=== PATIENT | male | born 1965 | race Caucasian/White ===

== ENCOUNTER 2016-09-17 07:57 | Emergency (ER) | payer OTHER ==
--- NOTE | 2016-09-17 08:22 | ERPHSYRPT ---
- History of Present Illness Time Seen by Provider: 09/17/16 08:15 Historian: patient Exam Limitations: no limitations Patient Subjective Stated Complaint: PT REPORTS RIGHT FLANK PAIN RADIATING TO LOW [id number] FEVER-DENIES N/V/D-DENIES DIFFICULTY WITH URINATION OR BOWELS Triage Nursing Assessment: PT PINK WARM ET [id number] NONTENDER TO PALP- BOWEL SOUNDS PRESENT-RESP NONLABORED Physician History: The patient is a 51-year-old male with his complaining of right flank pain that began 3-4 days ago but is worsening today. The pain intensifies then lets up. The pain has started to move from the right flank around to the right lower abdomen. He denies nausea vomiting or diarrhea. He has no trouble urinating. He's had no history of kidney stones. His past medical history is significant for diabetes, GERD, and high cholesterol. His surgical history is significant for pilonidal cyst repair and right thumb surgery. Timing/Duration: day(s) (4) Activities at Onset: none Quality: sharpness Abdominal Pain Onset Location: flank Pain Radiation: RLQ Severity of Pain-Max: severe Severity of Pain-Current: severe Modifying Factors: Improves With: nothing Associated Symptoms: denies symptoms Previous symptoms: no prior history Allergies/Adverse Reactions: No Known Drug Allergies Allergy (Verified 09/17/16 08:04) Home Medications: Fexofenadine/Pseudoephedrine [Janine-D 24 Hour Tablet] 1 each PO DAILY [History] Insulin Lispro [Humalog] 20 unit SQ BID 02/01/13 [History] Metformin HCl 1000 mg [Glucophage 1000 MG] 1,000 mg PO BID 02/01/13 [History] Omeprazole 20 MG [Prilosec 20 mg] 20 mg PO DAILY 02/01/13 [History] Simvastatin 20Mg [Zocor 20Mg] 20 mg PO DAILY 02/01/13 [History] Insulin Glargine,Hum.rec.anlog [Basaglar Kwikpen U-100] 50 unit SQ DAILY [History] Hx Tetanus, Diphtheria Vaccination/Date Given: No Hx Influenza Vaccination/Date Given: No Hx Pneumococcal Vaccination/Date Given: No Immunizations Up to Date: Yes - Review of Systems Constitutional: No Fever, No Chills Eyes: No Symptoms Ears, Nose, & Throat: No Symptoms Respiratory: No Cough, No Dyspnea Cardiac: No Chest Pain, No Edema, No Syncope Abdominal/Gastrointestinal: Abdominal Pain Genitourinary Symptoms: No Dysuria Musculoskeletal: No Back Pain, No Neck Pain Skin: No Rash Neurological: No Dizziness, No Focal Weakness, No Sensory Changes Psychological: No Symptoms Endocrine: No Symptoms Hematologic/Lymphatic: No Symptoms Immunological/Allergic: No Symptoms All Other Systems: Reviewed and Negative - Past Medical History Pertinent Past Medical History: Yes Neurological History: No Pertinent History ENT History: Glaucoma Cardiac History: No Pertinent History Respiratory History: Other Endocrine Medical History: Diabetes Type II Musculoskeletal History: No Pertinent History GI Medical History: No Pertinent History History: No Pertinent History Psycho-Social History: No Pertinent History Male Reproductive Disorders: No Pertinent History Other Medical History: allergies/seansonal - Past Surgical History Past Surgical History: Yes Neuro Surgical History: No Pertinent History Cardiac: No Pertinent History Respiratory: No Pertinent History Gastrointestinal: No Pertinent History Genitourinary: No Pertinent History Musculoskeletal: Orthopedic Surgery Male Surgical History: No Pertinent History Other Surgical History: 1980 right thumb and forearm - Social History Smoking Status: Never smoker Exposure to second hand smoke: No Drug Use: none Patient Lives Alone: No - Nursing Vital Signs Nursing Vital Signs: Initial Vital Signs Temperature 97.8 F Temperature Source Oral Pulse Rate 89 Respiratory Rate 16 Blood Pressure [] 135/68 Pain Intensity 4 - Physical Exam General Appearance: moderate distress Eye Exam: PERRL/EOMI, eyes nml inspection Ears, Nose, Throat Exam: normal ENT inspection, pharynx normal, moist mucous membranes Neck Exam: normal inspection, non-tender, supple, full range of motion Respiratory Exam: normal breath sounds, lungs clear, No respiratory distress Cardiovascular Exam: regular rate/rhythm, normal heart sounds Gastrointestinal/Abdomen Exam: tenderness (RLQ and right flank) Rectal Exam: not done Back Exam: CVA tenderness (right) Extremity Exam: normal inspection, normal range of motion, pelvis stable Neurologic Exam: alert, oriented x 3, cooperative, normal mood/affect, nml cerebellar function, sensation nml, No motor deficits Skin Exam: normal color, warm, dry SpO2 Interpretation: normal SpO2: 98 Oxygen Delivery: Room Air - CT Exams Abdomen/Pelvis CT Interpretation: Negative, Tele-radiologist Report, Normal Appendix, Other ( Neg renal stone or evidence of obstructive uropathy. normal appendix. neg abd/ pelvis per Dr Lopez.) - Radiology Ultrasound Exam Gallbladder Ultrasound: tele radiology report ([facility] tech states there is sludge in GB, no wall thickening.) Ordered Tests: Active Orders 24 hr Category Date Time Status IV Insertion STAT Care 09/17/16 08:26 Active ABDOMEN AND PELVIS W/0 CONTRAS [CT] Stat Exams 09/17/16 08:27 Completed GALLBLADDER [US] Stat Exams 09/17/16 10:45 Ordered CBC W DIFF Stat Lab 09/17/16 08:37 Completed CMP Stat Lab 09/17/16 08:37 Completed LIPASE Stat Lab 09/17/16 08:37 Completed TROPONIN Stat Lab 09/17/16 10:19 Completed UA W/RFX UR CULTURE Stat Lab 09/17/16 09:48 Completed Medication Summary Discontinued Medications Generic Name Dose Route Start Last Admin Trade Name Freq PRN Reason Stop Dose Admin Hydromorphone HCl 1 mg 09/17/16 08:26 09/17/16 08:48 Hydromorphone 1 Mg/Ml Ampule IV 09/17/16 08:27 1 mg STAT ONE Administration Hydromorphone HCl Confirm 09/17/16 08:38 Hydromorphone 1 Mg/Ml Ampule Administered 09/17/16 08:39 Dose 1 mg .ROUTE .STK-MED ONE Sodium Chloride 1,000 mls @ 999 mls/hr 09/17/16 08:26 09/17/16 08:46 Sodium Chloride 0.9% 1000 Ml IV 09/17/16 09:26 999 mls/hr .Q1H1M STA Administration Sodium Chloride Confirm 09/17/16 08:38 Sodium Chloride 0.9% 1000 Ml Administered 09/17/16 08:39 Dose 1,000 mls @ ud .ROUTE .STK-MED ONE Ketorolac Tromethamine 30 mg 09/17/16 08:26 09/17/16 08:46 Toradol 30 Mg Injection IV 09/17/16 08:27 30 mg STAT ONE Administration Ketorolac Tromethamine Confirm 09/17/16 08:38 Toradol 30 Mg Injection Administered 09/17/16 08:39 Dose 30 mg .ROUTE .STK-MED ONE Promethazine HCl 25 mg 09/17/16 08:26 09/17/16 08:47 Phenergan 25 Mg Inj IV 09/17/16 08:27 25 mg STAT ONE Administration Promethazine HCl Confirm 09/17/16 08:38 Phenergan 25 Mg Inj Administered 09/17/16 08:39 Dose 25 mg .ROUTE .STK-MED ONE Tamsulosin HCl 0.4 mg 09/17/16 08:29 09/17/16 08:48 Flomax 0.4 Mg PO 09/17/16 08:30 0.4 mg DAILY STA Administration Tamsulosin HCl Confirm 09/17/16 08:38 Flomax 0.4 Mg Administered 09/17/16 08:39 Dose 0.4 mg .ROUTE .STK-MED ONE Lab/Rad Data: Laboratory Result Diagrams 09/17/16 08:37 09/17/16 08:37 Laboratory Results 09/17/16 09/17/16 09/17/16 Range/Units 10:19 09:48 08:37 WBC (4.0-10.5) K/mm3 RBC (4.1-5.6) M/mm3 Hgb (12.5-18.0) gm/dl Hct (42-50) % MCV (78-100) fl MCH (26-32) pg MCHC (32-36) g/dl RDW (11.5-14.0) % Plt Count (150-450) K/mm3 MPV (6-9.5) fl Gran % (36.0-66.0) % Lymphocytes % (24.0-44.0) % Monocytes % (0.0-12.0) % Eosinophils % (0.00-5.0) % Basophils % (0.0-0.4) % Basophils # (0-0.4) Sodium 141 (136-145) mEq/L Potassium 3.8 (3.5-5.1) mEq/L Chloride 105 (98-107) mEq/L Carbon Dioxide 26.5 (21-32) mEq/L Anion Gap 13.5 (5-15) MEQ/L BUN 15 (9-20) mg/dL Creatinine 1.02 (0.55-1.30) mg/dl Estimated GFR > 60 ML/MIN Glucose 133 H (70-110) MG/DL Calcium 9.6 (8.5-10.1) mg/dL Total Bilirubin 0.50 (0.2-1.0) mg/dL AST 20 (15-37) U/L ALT 24 (12-78) U/L Alkaline Phosphatase 38 L (46-116) U/L Troponin I < 0.017 (0.000-0.056) ng/ml Serum Total Protein 6.9 (6.4-8.2) gm/dL Albumin 3.7 (3.4-5.0) g/dL Lipase 250 (73-393) U/L Ur Collection Type VOID Urine Color YELLOW (YELLOW) Urine Appearance CLEAR (CLEAR) Urine pH 5.5 (5-6) Ur Specific [place] 1.015 (1.005-1.025) Urine Protein NEGATIVE (Negative) Urine Glucose (UA) >=1000 (NEGATIVE) mg/dL Urine Ketones NEGATIVE (NEGATIVE) Urine Nitrite NEGATIVE (NEGATIVE) Urine Bilirubin NEGATIVE (NEGATIVE) Urine Urobilinogen 0.2 (0-1) mg/dL Urine WBC (Auto) NEGATIVE (NEGATIVE) Urine RBC (Auto) NEGATIVE (0-5) Bird/ul Specimen Received 09/17/16 0945 09/17/16 Range/Units 08:37 WBC 11.0 H (4.0-10.5) K/mm3 RBC 5.19 (4.1-5.6) M/mm3 Hgb 15.4 (12.5-18.0) gm/dl Hct 43.8 (42-50) % MCV 84.4 (78-100) fl MCH 29.7 (26-32) pg MCHC 35.2 (32-36) g/dl RDW 13.6 (11.5-14.0) % Plt Count 261 (150-450) K/mm3 MPV 8.5 (6-9.5) fl Gran % 63.6 (36.0-66.0) % Lymphocytes % 22.3 L (24.0-44.0) % Monocytes % 7.6 (0.0-12.0) % Eosinophils % 5.6 H (0.00-5.0) % Basophils % 0.9 (0.0-0.4) % Basophils # 0.10 (0-0.4) Sodium (136-145) mEq/L Potassium (3.5-5.1) mEq/L Chloride (98-107) mEq/L Carbon Dioxide (21-32) mEq/L Anion Gap (5-15) MEQ/L BUN (9-20) mg/dL Creatinine (0.55-1.30) mg/dl Estimated GFR ML/MIN Glucose (70-110) MG/DL Calcium (8.5-10.1) mg/dL Total Bilirubin (0.2-1.0) mg/dL AST (15-37) U/L ALT (12-78) U/L Alkaline Phosphatase (46-116) U/L Troponin I (0.000-0.056) ng/ml Serum Total Protein (6.4-8.2) gm/dL Albumin (3.4-5.0) g/dL Lipase (73-393) U/L Ur Collection Type Urine Color (YELLOW) Urine Appearance (CLEAR) Urine pH (5-6) Ur Specific [place] (1.005-1.025) Urine Protein (Negative) Urine Glucose (UA) (NEGATIVE) mg/dL Urine Ketones (NEGATIVE) Urine Nitrite (NEGATIVE) Urine Bilirubin (NEGATIVE) Urine Urobilinogen (0-1) mg/dL Urine WBC (Auto) (NEGATIVE) Urine RBC (Auto) (0-5) Bird/ul Specimen Received - Progress Progress: improved Progress Note: 09/17/16 13:59 After 1 L normal saline, Toradol 30 mg, Dilaudid 1 mg, and Phenergan 25 mg IV, the patient is feeling better. He still has mild p in his right flank region. I discussed all of the imaging studies and laboratory studies with him and his family. I discussed that he should follow-up with Dr. Araujo tomorrow for possible further evaluation. Counseled pt/family regarding: lab results, diagnosis, need for follow-up, rad results - Departure Time of Disposition: 14:01 Departure Disposition: Home Clinical Impression: Abdominal pain Condition: Stable Critical Care Time: No Additional Instructions: You have abdominal pain of unspecified origin. Your white count was marginally elevated but the rest of your laboratory results were normal. The CT scan of her abdomen and pelvis showed a normal appendix. The ultrasound of your gallbladder showed sludge in the gallbladder but no stone. You were given normal saline, Phenergan 25 mg, Toradol 30 mg, and Dilaudid 1 mg by IV in the ER. He were also given Flomax 0.4 mg by mouth. Take Flexeril 5 mg every 8 hours as needed. Stay well hydrated. Follow-up tomorrow with Dr. Araujo. Prescriptions: Cyclobenzaprine HCl [Flexeril] 5 mg PO Q8H PRN PRN #10 tablet PRN Reason: Pain
[2016-09-17] MEDS ORDERED: TORAdol 30 mg Injection IV ONE (08:26)
[2016-09-17] MEDS ORDERED: Phenergan 25 MG INJ IV ONE (08:26)
[2016-09-17] MEDS ORDERED: Sodium Chloride 0.9% 1000 ML 1,000 ML IV STA (08:26)
[2016-09-17] MEDS ORDERED: Hydromorphone 1 mg/ml Ampule IV ONE (08:26)
[2016-09-17] MEDS ORDERED: Flomax 0.4 MG PO STA (08:29)
[2016-09-17] MEDS ORDERED: Phenergan 25 MG INJ ONE (08:38)
[2016-09-17] MEDS ORDERED: Flomax 0.4 MG ONE (08:38)
[2016-09-17] MEDS ORDERED: Hydromorphone 1 mg/ml Ampule ONE (08:38)
[2016-09-17] MEDS ORDERED: Sodium Chloride 0.9% 1000 ML 1,000 ML ONE (08:38)
[2016-09-17] MEDS ORDERED: TORAdol 30 mg Injection ONE (08:38)
[2016-09-17 08:42] LABS: BASOPHIL % 0.9 % (0.0-0.4); Eosinophil % 5.6 % (0.00-5.0); Granulocytes % 63.6 % (36.0-66.0); Lymphocytes % 22.3 % (24.0-44.0); Mean Cell Volume 84.4 fl (78-100); Mean Corpuscular Hemoglobin 29.7 pg (26-32); Mean Platelet Volume 8.5 fl (6-9.5); Monocytes % 7.6 % (0.0-12.0); Platelet Count 261 K/mm3 (150-450); Red Blood Count 5.19 M/mm3 (4.1-5.6); Red Cell Distribution Width 13.6 % (11.5-14.0)
[2016-09-17 09:02] LABS: ALBUMIN 3.7 g/dL (3.4-5.0); ALKALINE PHOSPHATASE 38 U/L (46-116); ANION GAP 13.5 MEQ/L (5-15); BLOOD UREA NITROGEN 15 mg/dL (9-20); CHLORIDE 105 mEq/L (98-107); Carbon Dioxide 26.5 mEq/L (21-32); Glucose 133 MG/DL (70-110); LIPASE 250 U/L (73-393); Potassium 3.8 mEq/L (3.5-5.1); SGOT/AST 20 U/L (15-37); SGPT/ALT 24 U/L (12-78); SODIUM 141 mEq/L (136-145); Total Protein 6.9 gm/dL (6.4-8.2)
[2016-09-17 09:58] LABS: ADD URINE CULTURE? NO (NO); COMPLETE URINE MICROSCOPIC? NO; Collection Type VOID; Ph 5.5 (5-6)
--- NOTE | 2016-09-17 10:29 | XRAY ---
Indication: Right flank pain. Multiple contiguous axial images obtained through the abdomen and pelvis without contrast as ordered. Comparison: None Lung bases essentially clear. Heart is not enlarged. No renal calculus or evidence for obstructive uropathy in either system. Noncontrasted stomach and bowel loops appear nonobstructed. There is mild scattered colonic fecal debris throughout. Normal appendix. No free fluid/air. Tiny 2 mm calcification near the gallbladder hepatic interface. Remaining liver, gallbladder, pancreas, spleen, adrenal glands, kidneys, ureters, bladder, and aorta appear unremarkable for noncontrast exam. Osseous structures intact with mild degenerative changes throughout the spine greatest at the lumbosacral junction. Impression: 1. Negative for renal calculus or evidence for obstructive uropathy. 2. Incidental 2 mm calcification near the gallbladder hepatic interface. Gallbladder sonogram may yield further information if clinically warranted. 3. Mild fecal stasis without obstruction. CTDI 23.69
[2016-09-17 13:59] VITALS: BP 124/66; PULSE 86; O2SAT 98
--- NOTE | 2016-09-17 17:11 | XRAY ---
Indication: Right upper quadrant pain. Two-dimensional right upper quadrant abdominal sonogram performed. Comparison: None S[employer]itor [employer] notes difficult exam due to patient body habitus. Pancreas not well visualized. Gallbladder normally distended with small amount of intraluminal sludge. No gallstones, wall thickening, or pericholecystic fluid. Common bile duct 3.8 mm. Tiny 3 mm calcification near the gallbladder liver interface felt to be hepatic in origin and probably calcified granuloma. Remaining visualized portions of the liver homogeneous. No ascites. Right kidney measures 11.6 cm in length and sonographically unremarkable. Impression: 1. Limited exam due to body habitus. Pancreas not visualized. 2. Tiny gallbladder sludge. Negative for gallstones or acute cholecystitis. 3. Tiny hepatic calcified granuloma. Comment: Preliminary report was given.
== END 2016-09-17 14:18 | disposition home or self-care (01) ==
LOC: ED 07:57
DX: R10.9 Unspecified abdominal pain (principal); E11.9 Type 2 diabetes mellitus without complications; Z79.84 Long term (current) use of oral hypoglycemic drugs; Z79.899 Other long term (current) drug therapy
CPT/HCPCS: 36000; 36415; 74176; 76705; 80053; 81002; 83690; 84484; 85025; 96360; 96374; 96375; 99284; J1170; J1885; J2550; A9270-GY

== ENCOUNTER 2019-10-12 05:58 | Day surgery (SDC) | payer OTHER ==
[2019-10-12 07:05] VITALS: O2SAT 100
[2019-10-12] MEDS ORDERED: Lactated Ringers 1,000 ML IV SCH (07:30)
[2019-10-12] MEDS ORDERED: DIPRIVAN 200 MG/20 ML IV ONE ×2 (07:53→08:24)
[2019-10-12] MEDS ORDERED: Ketamine HCl 50 MG/ML ONE (07:53)
[2019-10-12] MEDS ORDERED: Xylocaine-Mpf 2% 5 Ml Vial ONE (07:53)
[2019-10-12 09:24] LABS: Absolute Neutrophil Ct (ANC) 4.48 (1.4-6.9); BASOPHIL % 0.8 % (0.0-0.4); Basophil (Absolute #) 0.06 (0-0.4); Eosinophil % 3.5 % (0.00-5.0); Eosinophil (Absolute #) 0.27 (0-0.5); Hematocrit 30.3 % (42-50); Hemoglobin 8.6 gm/dl (12.5-18.0); Lymphocyte (Absolute #) 2.25 (1.0-4.6); Lymphocytes % 29.2 % (24.0-44.0); Mean Cell Volume 68.6 fl (78-100); Mean Corpuscular Hemoglobin 19.5 pg (26-32); Mean Corpuscular Hgb Concent. 28.4 g/dl (32-36); Mean Platelet Volume 8.3 fl (7.5-11.0); Monocyte (Absolute #) 0.65 (0.0-1.3); Monocytes % 8.4 % (0.0-12.0); Neutrophil % 58.1 % (36.0-66.0); Platelet Count 307 K/mm3 (150-450); Red Blood Count 4.42 M/mm3 (4.1-5.6); White Blood Count 7.7 K/mm3 (4.0-10.5)
[2019-10-12 09:37] LABS: ALBUMIN 3.9 g/dL (3.5-5.0); ALKALINE PHOSPHATASE 49 U/L (38-126); ANION GAP 12.4 MEQ/L (5-15); BLOOD UREA NITROGEN 16 mg/dL (9-20); CHLORIDE 107 mmol/L (98-107); Calcium 9.1 mg/dL (8.4-10.2); Carbon Dioxide 25 mmol/L (22-30); Glucose 132 mg/dL (74-106); Potassium 4.7 mmol/L (3.5-5.1); SGOT/AST 27 U/L (17-59); SGPT/ALT 17 U/L (0-50); SODIUM 139 mmol/L (137-145); Total Protein 7.1 g/dL (6.3-8.2)
[2019-10-12 10:21] LABS: Slide Review 1 YES
[2019-10-12 10:36] VITALS: BP 155/81; PULSE 87
--- NOTE | 2019-10-12 12:58 | OP ---
SURGERY DATE/TIME: 10/12/2019 0757 PREOPERATIVE DIAGNOSES: 1) Abdominal pain. 2) Rectal bleeding. POSTOPERATIVE DIAGNOSES: 1) Normal upper endoscopy. 2) Large sessile versus pedunculated polyp. A second even larger polyp nearly completely occluding the sigmoid colon and an apple core lesion in the rectosigmoid area approximately 10 cm depth insertion. PROCEDURES: 1) EGD. 2) Colonoscopy with cold forceps biopsy. SURGEON: Dr. Araujo. ANESTHESIA: MAC. Medications given by anesthesia department. HISTORY: The patient is a 54 year old white male patient presenting now for endoscopic evaluation due to abdominal pain and rectal bleeding intermittently. It is noted the patient also takes blood thinners for atrial fibrillation. The patient was felt the need to have endoscopic evaluation and was appraised of the risks of the procedure including the risk of perforation, phlebitis, untoward reaction to medication, increase in risk of bleeding since he took his Lovenox right up to the time of examination and missed lesions. The patient verbalized his understanding and desired to have the procedure performed. DESCRIPTION OF PROCEDURE: The patient was given the medications by the anesthesia department. He had continuous pulse oximetry, ECG monitoring, intermittent blood pressure monitoring and tidal CO2 monitoring during the examination. He was placed in the left lateral decubitus position. A bite block was placed. The flexible Olympus gastroscope was used to intubate the oropharynx. A view of the larynx was obtained and was normal. The scope was easily introduced in the esophagus which appeared to be normal throughout its length. The stomach was entered where gastric roberson was suctioned dry and re-insufflated. The gastric rugal folds distended nicely with insufflation of air. The scope was passed along the greater curvature almost to the antrum. The pylorus encountered and intubated. Duodenum was found to be normal. The scope then withdrawn towards the stomach. A retroflex view was obtained of the lesser curvature, fundus and cardia regions of the stomach and these appeared to be essentially normal. The scope was removed from the patient. Next, a digital rectal examination was performed and revealed normal anal sphincter tone and no masses and normal prostate. The flexible Olympus pediatric colonoscope was used to intubate the rectum. Almost immediately upon entry at approximately 10 cm depth insertion was noted an apple core-type lesion. We were able to pass the scope beyond this however. The scope was passed through the sigmoid colon where a large what appeared to be sessile polyp nearly occluding the lumen was also noted in this area. We were also able to get past this. As we progressed through the colon, the transverse colon was noted also large polyp in this area which also appeared to be fairly thick based. We were able to then proceed to the cecum which appeared to be essentially normal. The right side of the colon from the mid-transverse colon appeared to be normal over, however the large polyps were noted in the left side of the colon. Upon withdrawal of the scope biopsies were obtained in the lesion of the rectosigmoid area which appeared to be very firm and friable and very concerning for adenocarcinoma. The scope is then removed from the patient who tolerated the procedure well and was sent back to OP recovery in good condition. The prep was noted to be fair with fair amounts of liquid stool precluding evaluation of small polyps that might have been missed in the colon otherwise.
== END 2019-10-12 10:10 | disposition home or self-care (01) ==
LOC: SDC 05:58
PROVIDERS: ATTEND Family Medicine
DX: K63.5 Polyp of colon (principal); D37.4 Neoplasm of uncertain behavior of colon; K62.5 Hemorrhage of anus and rectum; E11.9 Type 2 diabetes mellitus without complications; Z79.899 Other long term (current) drug therapy
CPT/HCPCS: 36415; 80053; 82378; 82962; 85025; J2704

== ENCOUNTER 2019-11-02 04:47 | Day surgery (SDC) | payer OTHER ==
[2019-11-02] MEDS ORDERED: DIPRIVAN 200 MG/20 ML IV ONE ×2 (06:20→07:16)
[2019-11-02] MEDS ORDERED: Ketamine HCl 50 MG/ML ONE (06:21)
[2019-11-02] MEDS ORDERED: Lactated Ringers 1,000 ML IV SCH (06:30)
--- NOTE | 2019-11-02 08:03 | HP ---
DATE OF SURGERY: 11/02/2019 HISTORY OF PRESENT ILLNESS: The patient is a 54 year old with strong family history of colon cancer. He has uncle, mother and grandmother who had colon cancer according to the patient. He was noted to have two large polyps. He was noted to have some eccentric area in his colon on recent endoscopy by Dr. Araujo. He is in need of follow up colonoscopy to aaliyah the lesions as well as rebiopsy original biopsy. I am not sure if ej carcinoma but quite suspicious lesion. PAST MEDICAL HISTORY: Diabetes, hypertension, atrial fibrillation. PAST SURGICAL HISTORY: Broken right thumb and cyst on his back in the past. He had a colonoscopy in the past. MEDICATIONS: Glucosamine, insulin pump, metoprolol, Multaq, nitroglycerin, Ajnine, NovoLog, omeprazole, Tums, Pepto-Bismol, Eliquis, ezetimibe, enoxaparin, Farxiga, ferrous sulfate, colesevelam. ALLERGIES: NKDA. FAMILY HISTORY: Colon cancer. SOCIAL HISTORY: No smoking or alcohol abuse. REVIEW OF SYSTEMS: Fourteen systems reviewed. He is a little bit overweight. No chest pain or palpitations. He did have eccentric noncalcified colonic masses. No gross liver metastasis. Otherwise he had history of hypertension and diabetes. PHYSICAL EXAMINATION: GENERAL: No acute distress. HEENT: Sclerae nonicteric. NECK: No JVD. CHEST: Equal excursion, nonlabored breathing. CVS: Regular rate and rhythm. ABDOMEN: Soft. He is a little overweight. No peritoneal signs. EXTREMITIES: No significant edema. NEURO: Alert, oriented, moving extremities symmetrically. No gross motor deficits noted. RECTAL: Deferred timed to endoscopy exam. IMPRESSION: A 54 year old with high grade dysplassia been biopsied by Dr. Araujo. From operative note description sounds this is currently in the rectal area. The patient needs follow up endoscopy for additional tissue sampling as well as looking at locations of the lesions. If he indeed has suspicion of carcinoma then might benefit from chemo regimen therapy prior to considering resection. Additionally, he would benefit from having testing done with very, very strong family history given the multiple masses in his colon. He understands general risk of bleeding or infection, risk of bowel injury or perforation, risk of missed or nondiagnosis, risk of bowel injury or perforation possibly requiring open procedure, risk of anesthesia or bowel prep but not limited to. He understands and agrees to the planned procedure, will do some testing. If he truly had Hunts syndrome may need to consider total or subtotal colectomy. Otherwise will proceed with outpatient colonoscopy with tattooing of location and additional biopsy.
[2019-11-02 09:04] VITALS: O2SAT 99
[2019-11-02 09:08] VITALS: BP 163/94; PULSE 68
--- NOTE | 2019-11-02 09:18 | OP ---
SURGERY DATE/TIME: 11/02/2019 0653 PREOPERATIVE DIAGNOSIS: Multiple colon masses, need for tattooing of location prior to considering surgical versus neoadjuvant treatment first. POSTOPERATIVE DIAGNOSES: Multiple colon masses, multiple colon polyps. PROCEDURES: 1) Colonoscopy to cecum. 2) Hot biopsy removal of small ascending colon polyp across from the ileocecal valve. 3) Ink spot tattooing distal edge of transverse colon polypoid mass marked with ink spot tattooing submucosal area. 4) Hot snare polypectomy of descending colon polyp. 5) Multiple cold biopsies of ulcerated hard rectal mass seen to be around 7 cm in prominent anal verge area the lower third of the rectum with ink spot tattooing of the distal edge of this rectal mass. SURGEON: Dr. Brandon Preston. ANESTHESIA: MAC. ESTIMATED BLOOD LOSS: Minimal. INDICATIONS: As noted above. Risks and benefits explained in detail but not limited to and consent obtained. DESCRIPTION OF PROCEDURE AND FINDINGS: The patient is taken to the operating room. MAC anesthesia introduced. After official time out and no disagreement with planned procedure, digital rectal exam failed to feel distal edge of this rectal mass with the tip of the finger and some small internal hemorrhoids. Video colonoscope inserted. This was an ulcerated almost apple core-type lesion that was very hard and ulcerated and definitely looked like carcinoma. Multiple cold biopsies were taken as the original biopsy pathology reported only high grade dysplasia. It is felt this definitely was a cancer and needed better tissue diagnosis to allow for what was highly recommended neoadjuvant treatment. Otherwise multiple cold biopsies were taken. The scope was passed through this area up through it. There was noted a smaller, flat probably 6 or 7 mm elongated, flatter polyp in the sigmoid colon. There was a larger mass probably about 1.5 to 2.5 cm polypoid mass at the proximal sigmoid colon. The scope passed back through here. In the mid transverse colon another large polypoid mass approaching about a couple centimeters or more. This is the mid transverse colon and polypoid mass could easily be seen on the CT scan. The distal edges were marked with ink spot tattooing 1 cc in a couple different locations. The scope was passed onto the cecum confirmed by palpation and visualization of valve and appendiceal orifice area. There was a small polyp across the valve area this was removed with hot biopsy forceps. Otherwise the scope was then carefully withdrawn over the next 16 minutes. Again the distal edge of the transverse colon polypoid mass was then marked with ink spot tattooing 1 cc in a couple of different locations. The scope was carefully pulled back in the descending colon. A 4 mm polyp removed with hot snare polypectomy with brief bursts of cautery. Good hemostasis noted. Otherwise the scope then pulled back to what seemed to be about 35 to 40 cm in the more proximal sigmoid colon where this other large polypoid mass. It was felt there was no benefit to biopsy this as the distal one appeared to be carcinoma. In between this more proximal sigmoid-rectal mass was another area 6 to 7 mm elongated polyp. It was felt there was no benefit to biopsy this as this is in between two areas that need to come out surgically eventually. The scope pulled back. Again, multiple cold biopsies are taken of this hard, firm, ulcerated circumferential mass in the lower third of the rectum. Good hemostasis noted. Ink spot tattooing 1 cc in two or three different locations. The distal edge of this was used to aaliyah the location with ink spot tattoo. The scope is withdrawn. The patient tolerated the procedure well. Findings discussed and pictures shown to the family member out in the waiting area. I feel he definitely needs some consideration of neoadjuvant chemo/radiation while awaiting his genetic tests to see if he has Mcdowell syndrome or other genetic predisposition that might require more extensive resection.
== END 2019-11-02 08:57 | disposition home or self-care (01) ==
LOC: SDC 04:47
PROVIDERS: ATTEND Surgery
DX: C20 Malignant neoplasm of rectum (principal); D12.4 Benign neoplasm of descending colon; K64.8 Other hemorrhoids; Z80.0 Family history of malignant neoplasm of digestive organs; Z86.010 Personal history of colon polyps; E11.9 Type 2 diabetes mellitus without complications; I10 Essential (primary) hypertension; I48.91 Unspecified atrial fibrillation; Z79.01 Long term (current) use of anticoagulants; Z79.899 Other long term (current) drug therapy
CPT/HCPCS: 82962; 88305; J2704

== ENCOUNTER 2019-11-09 09:48 | Day surgery (SDC) | payer OTHER ==
--- NOTE | 2019-11-06 11:46 | HP ---
DATE OF SURGERY: 11/09/2019 HISTORY OF PRESENT ILLNESS: The patient is a 54 year old patient of Dr. George with multiple colon masses. On original colonoscopy it had shown some high grade dysplasia. He underwent a repeat colonoscopy with tattooing of location of these areas while awaiting for genetic testing to see Dr. Melchor. He underwent follow up biopsy and colonoscopy this was felt to be a rectal cancer. Biopsy returned back invasive moderately differentiated adenocarcinoma. He also had polyp taken off in the ascending colon and another polyp removed in the descending colon. He had a couple other large polypoid masses in the mid transverse colon as well as more proximal sigmoid colon that will need to be treated at the time of surgery. He will see Dr. Melchor and Dr. Norton as it was felt he would benefit from consideration of chemo and radiation therapy while awaiting return of his genetic testing to see if given his multiple masses, to see if he genetic defect that might require more aggressive therapy at the time of surgery. At this time he is in need of Port-A-Cath placement for setting up IV treatments. PAST MEDICAL HISTORY: Atrial fibrillation, hypertension, diabetes, obesity. PAST SURGICAL HISTORY: Broken thumb. Cyst on his back. Colonoscopy in the past. MEDICATIONS: Janine, colesevelam, Eliquis, enoxaparin, ezetimibe, Farxiga, ferrous sulfate, Glucosamine, insulin pump, Lisinopril, Metoprolol, Multaq, nitroglycerin, NovoLog, omeprazole, Yumiko's, Unisom sleep. ALLERGIES: NKDA. FAMILY HISTORY: Very strong for colon cancer. His grandmother had ten siblings who had colon cancer and an aunt and uncle. SOCIAL HISTORY: No smoking or alcohol abuse. REVIEW OF SYSTEMS: Fourteen systems reviewed. Negative or noncontributory as above and per preadmission questionnaire. LAB DATA AND TESTS: CT scan did not show any obvious liver lesions other than calcified granuloma. His CEA is elevated 6.8. Hemoglobin 8.6 initially. PHYSICAL EXAMINATION: GENERAL: No acute distress. HEENT: Sclerae nonicteric. NECK: No JVD. CHEST: Equal excursion, nonlabored breathing. CVS: Regular rate and rhythm. ABDOMEN: Soft. No peritoneal signs. EXTREMITIES: No significant edema. NEURO: Alert, oriented, moving extremities symmetrically. No gross motor deficits noted. IMPRESSION: Rectal cancer. He needs port for neoadjuvant treatment. Rectal cancer, other large polypoid lesions that will need eventually surgical treatment. He is in need of chemo and radiation first and later setting up for resection. In the meantime given his strong family history has genetic testing pending at this time to determine if he needs a more aggressive resection versus total colectomy or other more aggressive procedure, resection of the areas in question. He understands and agrees to the planned procedure. He is in need of Port-A-Cath placement at this time. Risk and benefits explained in detail but not limited to bleeding or infection, risk of thrombosis, pneumothorax, risk of arterial injury, risk of Port-A-Cath fracture or failure, remote risk of major venous tear, risk of mortality, risk of cardiopulmonary event, general risk of anesthesia, deep venous thrombosis, pulmonary embolism, pneumonia but not limited to, aches and pains. He agreed to the planned procedure, will proceed with Port-A-Cath placement as an outpatient.
[~2019-11-09 09:48] MED LIST: XYLOCAINE 1% HCL 20 ML MDV ONE
[2019-11-09] MEDS ORDERED: Lactated Ringers 1,000 ML IV SCH (10:00)
[2019-11-09] MEDS ORDERED: Lactated Ringers 1,000 ML IV ONE (10:19)
[2019-11-09] MEDS ORDERED: KEFZOL 1 GM** 3 G in Sodium Chloride 0.9% 50 ML 50 ML IV ONE (11:00)
[2019-11-09] MEDS ORDERED: SUBLIMAZE 100 MCG/2 ML ONE (13:27)
[2019-11-09] MEDS ORDERED: DIPRIVAN 200 MG/20 ML IV ONE ×2 (13:27→13:45)
[2019-11-09] MEDS ORDERED: Versed 2 MG/2 ML Injection ONE (13:28)
--- NOTE | 2019-11-09 14:15 | XRAY ---
Indication: Port placement. Intraoperative fluoroscopy was provided for 6 seconds. 2 digital spot images submitted for interpretation demonstrates incompletely visualized right Port-A-Cath with tip projecting over the SVC. Correlate with intraoperative findings/report.
[2019-11-09] MEDS ORDERED: XYLOCAINE 1% HCL 20 ML MDV ONE (14:32)
--- NOTE | 2019-11-09 15:23 | OP ---
AMENDED REPORT: SURGERY DATE/TIME: 11/09/2019 1327 PREOPERATIVE DIAGNOSIS: Rectal cancer, need for Port-A-Cath for neoadjuvant chemotherapy and radiation treatment. POSTOPERATIVE DIAGNOSIS: Rectal cancer, need for Port-A-Cath for neoadjuvant chemotherapy and radiation treatment. PROCEDURE: Tunnel Port-A-Cath placement with C-arm fluoroscopy. SURGEON: Dr. Brandon Perston. OVERSEER KOSHER KITCHEN: Lisa Urena, Medical Student III. ANESTHESIA: MAC, 1% lidocaine local. ESTIMATED BLOOD LOSS: Minimal. INDICATIONS: As noted above. Risks and benefits explained in detail and not limited to and consent obtained. DESCRIPTION OF PROCEDURE AND FINDINGS: The patient is taken to the operating room. MAC anesthesia introduced. Neck and chest prepped and draped in usual sterile fashion. After official time out and no disagreement with the planned procedure, 1% Lidocaine local infiltrated left subclavicular area. An 18 gauge cannulation needle inserted. However there was inadequate return for passing the guide wire. Despite two passes, it was then elected to go to the opposite side. Right subclavian anesthetized with 1% lidocaine local. An 18 gauge cannulation needle inserted and on first pass dark nonpulsatile venous return. Guide wire passed. Initially it wanted to go up the jugular vein. It was able to be redirected down the superior vena cava. It was followed by anesthetizing tunnel track and port pocket. Transverse incision made inferior subcu. Port pocket created with aid of cautery. Port secured to the chest wall with Prolene suture x2. Catheter tunneled down from cannulation stab wound down to port pocket area. The dilator and break away sheath easily passed over the guide wire. The catheter was fed down break away sheath. The tip pulled back and appeared to be in distal superior vena cava/atrial area. Catheter cut to appropriate length snapped on the port at the hub. The port aspirated dark, nonpulsatile venous return with ease. It was flushed with injectable heparinized saline. The tip was in as good of location as possible. Lung baldwin were noted to be up bilaterally. It was felt that no further x-rays were necessary. Good hemostasis is noted. Subcu closed with 3-0 Vicryl, skin closed with 4-0 Vicryl. Cannulation stab wound closed with 4-0 Vicryl. Steri-Strips and sterile dressing applied. He was transferred to the recovery room in stable condition. Findings discussed with the family out in the waiting area.
[2019-11-09 15:25] VITALS: BP 156/88; PULSE 70; O2SAT 99
== END 2019-11-09 15:15 | disposition home or self-care (01) ==
LOC: SDC 09:48
PROVIDERS: ATTEND Surgery
DX: C20 Malignant neoplasm of rectum (principal); E11.9 Type 2 diabetes mellitus without complications; I10 Essential (primary) hypertension; I48.91 Unspecified atrial fibrillation; Z79.01 Long term (current) use of anticoagulants; Z79.899 Other long term (current) drug therapy
CPT/HCPCS: 77001; 82962; C1788; J0690; J1642; J2250; J2704; J3010

== ENCOUNTER 2020-02-08 08:23 | Day surgery (SDC) | payer OTHER ==
[~2020-02-08 08:23] MED LIST changes: +DIPRIVAN 200 MG/20 ML IV ONE; +Versed 2 MG/2 ML Injection ONE; -XYLOCAINE 1% HCL 20 ML MDV ONE
[2020-02-08] MEDS ORDERED: Lactated Ringers 1,000 ML IV SCH (08:30)
--- NOTE | 2020-02-08 09:14 | HP ---
DATE OF SURGERY: 02/08/2020 HISTORY OF PRESENT ILLNESS: The patient is a 54 year old with colorectal carcinoma and diabetes, prior history of atrial fibrillation in the past. He has been on some neoadjuvant treatment. He had cancer in the upper part of the rectum and underwent neoadjuvant treatment. He had two other large polypoid lesions that were not carcinoma on biopsy. He had neoadjuvant treatment. He needs follow up colonoscopy prior to arranging for eventual resection. PAST MEDICAL HISTORY: Colonoscopy in the past. He had reflux in the past. Atrial fibrillation, hypertension, diabetes. PAST SURGICAL HISTORY: Right hand surgery in the past. He had cardioversion in the past. Cyst on his back in the past. MEDICATIONS: Janine, enoxaparin, dronedarone, ezetimibe, Lisinopril, glucosamine, Humalog, Lisinopril, Lovenox, Imodium, metoprolol, Nitrostat PRN, omeprazole, Tylenol. ALLERGIES: NKDA. FAMILY HISTORY: Colon cancer. Grandmother, siblings had colon cancer. Diabetes and hypertension in the family. SOCIAL HISTORY: Denies smoking, denies alcohol abuse. REVIEW OF SYSTEMS: Fourteen systems reviewed. He is overweight. No chest pain or palpitations. Other systems negative or noncontributory as above and per preadmission questionnaire. PHYSICAL EXAMINATION: GENERAL: No acute distress. HEENT: Sclerae nonicteric. NECK: No JVD. CHEST: Equal excursion, nonlabored breathing. CVS: Regular rate and rhythm. ABDOMEN: Soft. No peritoneal signs. EXTREMITIES: No significant edema. NEURO: Alert, oriented, moving extremities symmetrically. No gross motor deficits noted. IMPRESSION: Rectal cancer with long family history as well as polyps in the past. He is in need of follow up colonoscopy for further evaluation prior to setting up eventual resection. I feel he would benefit from colonoscopy for further evaluation prior to eventual resection. Risk of bowel injury or perforation possibly requiring open procedure, risk of missed or nondiagnosis or incomplete exam possibly requiring barium enema, other studies or procedures, general risk of anesthesia or sedation, risk of bowel prep but not limited to, will proceed with follow up colonoscopy for rectal cancer to evaluate treatment effects of neoadjuvant treatment prior to considering eventual resection.
[2020-02-08 12:19] VITALS: O2SAT 99
[2020-02-08] MEDS ORDERED: Sodium Chloride 0.9% 10 ML FLUSH Syringe PORT FLUSH PRN (12:27)
[2020-02-08 12:58] VITALS: BP 136/73; PULSE 67
--- NOTE | 2020-02-08 15:18 | OP ---
SURGERY DATE/TIME: 02/08/2020 1051 PREOPERATIVE DIAGNOSIS: History of rectal cancer. History of large colon polyp. POSTOPERATIVE DIAGNOSES: 1) Large polypoid proximal sigmoid and distal descending colon area polyp. 2) Rectal cancer (smaller after chemo and radiation). 3) Large polyp transverse colon. 4) Small sigmoid colon polyps. PROCEDURES: 1) Colonoscopy to cecum. 2) Hot snare piecemeal removal of large polyp transverse colon, path pending. 3) HemoClip placement. 4) Hot snare polypectomy sigmoid colon polyp x2. 5) Cold or hot biopsy of polypoid proximal sigmoid with distal descending colon polypoid mass with ink spot tattooing of location here. SURGEON: Dr. Brandon Preston. ANESTHESIA: MAC. ESTIMATED BLOOD LOSS: Minimal. INDICATIONS: As noted above. Risks and benefits explained in detail but not limited to and consent obtained. DESCRIPTION OF PROCEDURE AND FINDINGS: The patient is taken to the operating room. MAC anesthesia introduced. Digital rectal exam. Seemed like his rectal tumor was just above the outstretched index finger and possibly about 7 cm from the anal verge just right above the lower valve. The scope had been inserted. Ink spot tattooing was still in place. The tumor itself was definitely smaller after the chemo and radiation. The lumen was widely patent. The scope was able to be passed through here. There were a couple small polyps removed with hot snare polypectomy in the sigmoid colon. In the more proximal sigmoid colon, it was noted one of the two other polypoid masses. Hot or cold biopsy taken of this for path and then the distal edge was retattoed with InkSpot just distal edge a couple cubic centimeters in submucosally. The scope was able to be passed through here down around the transverse colon where the mid or distal third of the transverse coon was noted. No other polypoid mass or InkSpot tattooing in this location was still present. It was felt that it warranted this question. As the path had been benign earlier, there I question whether to try to snare this off, to possibly set up different options regarding the options of reconstruction at the time of the resection of his cancer. Therefore using a snare and piecemeal resection with first the outer portion of this polypoid pedunculated lesion was accomplished. There was a little bit of but then got down to the base where it seem to be taken off the fold. There was scant ooze from the base. It was elected to put some LigaClip and LigaClip was placed. Unfortunately the staff did not have any other LigaClips to use at this point. The area is irrigated and appeared to have adequate hemostasis at this point. It was felt he should hold his blood thinners for a week following the procedure. Some pieces were sucked through the suction bilingual customer service specialist channel. The mesh bag was used to take a larger segment of a polyp out and passed off for pathology. Appeared to have adequate hemostasis. It should be noted that the scope had been passed all the way around to the cecum proximal to the transverse colon, large pedunculated polyp. There did not appear to be any other polyps present. The scope is carefully withdrawn over the next eight minutes. Adequate hemostasis noted. The transverse colon piecemeal polypectomy, snare polypectomy sites appeared to be viable. InkSpot tattooing in location. The scope pulled around to the polypoid mass in the proximal sigmoid and toward distal descending area of the colon. Good hemostasis noted. InkSpot tattooing in location. Scope pulled back. Polypectomy sites had good hemostasis. Scope pulled back. Again, InkSpot tattooing was located just distal to the mass that appeared to be around 7 cm from the anal verge or so. The scope is withdrawn. Findings discussed with the family out in the waiting area including the fact that he may pass some blood that usually clears over a day or two. He should hold his blood thinners for a week. I will see him back in the office next week.
== END 2020-02-08 13:05 | disposition home or self-care (01) ==
LOC: SDC 08:23
PROVIDERS: ATTEND Surgery
DX: D12.4 Benign neoplasm of descending colon (principal); Z85.048 Personal history of other malignant neoplasm of rectum, rectosigmoid junction, and anus; Z86.010 Personal history of colon polyps; D12.3 Benign neoplasm of transverse colon; D12.5 Benign neoplasm of sigmoid colon; E11.9 Type 2 diabetes mellitus without complications; I10 Essential (primary) hypertension; Z79.899 Other long term (current) drug therapy
CPT/HCPCS: 82962; 94250; J1642; J2250; J2704

== ENCOUNTER 2020-12-05 08:14 | Day surgery (SDC) | payer OTHER ==
--- NOTE | 2020-12-05 07:58 | HP ---
DATE OF SURGERY: 12/05/2020 HISTORY OF PRESENT ILLNESS: The patient is a 55 year-old had history of rectal cancer and also had cancer prior in his colon and he underwent resection. He has history of pulmonary embolism in the past. He is in need of follow up endoscopy. PAST MEDICAL HISTORY: Atrial fibrillation, pulmonary embolism, diabetes, obesity, gastroesophageal reflux disease, colorectal cancer. He had some neoadjuvant treatment, chemo and radiation. PAST SURGICAL HISTORY: Cardioversion in the past. Right hand surgery. Cyst excision. Laparotomy. Resection of two different sites. Upon surgery appeared to have some tumor infiltration in deep. He ended up having thrombosis and distal embolization. MEDICATIONS: Xarelto, dronedarone, ezetimibe, Glucosamine, hydrochlorothiazide, Humalog, lisinopril. He had been on some Lovenox in the past. Metoprolol, omeprazole, Tylenol Arthritis, Welchol. ALLERGIES: NKDA. FAMILY HISTORY: Cancer, diabetes, hypertension. SOCIAL HISTORY: No smoking. REVIEW OF SYSTEMS: Fourteen systems reviewed pertinent for multiple medical problems. He is overweight. PHYSICAL EXAMINATION: GENERAL: No acute distress. HEENT: Sclerae nonicteric. NECK: No JVD. CHEST: Equal excursion, nonlabored breathing. CVS: Regular rate and rhythm. ABDOMEN: Soft. No peritoneal signs. EXTREMITIES: No cyanosis. NEURO: Alert, oriented, moving extremities symmetrically. PSYCH: Appropriate mood and affect. IMPRESSION: History of sigmoid colon cancer proximal sigmoid as well as rectal cancer. He has undergone resection. He is in need of follow up endoscopy for further evaluation. Risks and benefits explained in detail including but not limited to bleeding or infection, risk of bowel injury or perforation possibly requiring open procedure, risk of missed or nondiagnosis or incomplete exam possibly requiring barium enema, other studies or procedures, general risk of anesthesia or sedation, risk of bowel prep but not limited to, consent obtained. Will proceed with colonoscopy through stoma as well as anus for further evaluation.
[2020-12-05] MEDS ORDERED: Lactated Ringers 1,000 ML IV ONE (08:18)
[2020-12-05] MEDS ORDERED: Lactated Ringers 1,000 ML IV SCH (08:30)
[2020-12-05] MEDS ORDERED: Versed 2 MG/2 ML Injection IV ONE (09:31)
[2020-12-05] MEDS ORDERED: DIPRIVAN 200 MG/20 ML IV ONE ×2 (10:32→10:52)
[2020-12-05 12:05] VITALS: BP 127/76; PULSE 77; O2SAT 97
[2020-12-05] MEDS ORDERED: Sodium Chloride 0.9% 10 ML FLUSH Syringe PORT FLUSH PRN (12:06)
--- NOTE | 2020-12-05 14:56 | OP ---
SURGERY DATE/TIME: 12/05/2020 1042 PREOPERATIVE DIAGNOSES: 1) History of sigmoid colon cancer, history of rectal cancer, requiring two separate resections, in need of follow up colonoscopy. 2) History of atrial fibrillation. 3) History of pulmonary embolus in the past. POSTOPERATIVE DIAGNOSES: 1) ASA Class III. 2) Small polyps distal transverse colon and descending colon. 3) Fair but limited bowel prep. 4) Proctitis. 5) Mild diverticulosis. 6) Withdrawal time approximately 12 minutes. PROCEDURES: 1) Flexible proctoscopy with cold biopsy inflamed rectum. 2) Colonoscopy through stoma to cecum. 3) Hot snare polypectomy distal transverse colon polyp. 4) Hot biopsy polypectomy of second smaller transverse colon polyp. 5) Hot snare polypectomy of small descending colon polyp. SURGEON: Dr. Brandon Preston. ANESTHESIA: MAC. ESTIMATED BLOOD LOSS: Minimal. INDICATIONS: As noted above. Risks and benefits explained in detail but not limited to and consent obtained. The patient finally got approval from his cardiac doctor to hold his blood thinner perioperatively. DESCRIPTION OF PROCEDURE AND FINDINGS: He was taken to the operating room. MAC anesthesia introduced. After official time out and no disagreement with planned procedure, digital rectal exam did not reveal any rectal masses. Flexible proctoscopy was accomplished up to the enclosure site. He had extensive fibrotic reaction at the time of the original surgery that seemed to be tumor-type material but ended up being fibrosis on the final path. He had inflammation in this area. There was no large mass. He seemed to have 4 to 5 cm from the anal verge on endoscopy that seemed to be quite inflamed tissue. Cold biopsy taken. No large masses were noted on this side. The scope is then passed through the patient's stoma in his left abdomen up through the prior colon anastomosis site. At his other cancer site, this did not have any signs of recurrence. The prep overall was fair but limited, had large liquidy semi-solid stool limiting exam for very small lesion. The scope is able to be passed around to the cecum. Appendiceal orifice and valve were photo documented. The scope is then carefully withdrawn over the next 12 minutes. The site at the transverse colon that he had surgical excisional polypectomy and removing his other two cancers, appeared to be okay. Blue dye was there. There were no signs any gross recurrence there. Scope pulled back distal transverse colon. There is a small polyp that is about 3 to 3.5 mm removed with hot snare polypectomy. Another small 2 mm removed with hot biopsy forceps with brief bursts of cautery, hot biopsy polypectomy. In the descending colon another small polyp about 2.5 to 3 mm removed with hot snare polypectomy with brief bursts of cautery. Good hemostasis noted. There were no signs of any large polyps, masses or obstructing lesions. Scope is withdrawn. Findings discussed with his out in the waiting area. I will see him back in the office next week.
== END 2020-12-05 12:32 | disposition home or self-care (01) ==
LOC: SDC 08:14
PROVIDERS: ATTEND Surgery
DX: Z08 Encounter for follow-up examination after completed treatment for malignant neoplasm (principal); K57.30 Diverticulosis of large intestine without perforation or abscess without bleeding; D12.3 Benign neoplasm of transverse colon; D12.4 Benign neoplasm of descending colon; K62.89 Other specified diseases of anus and rectum; Z85.038 Personal history of other malignant neoplasm of large intestine; Z85.048 Personal history of other malignant neoplasm of rectum, rectosigmoid junction, and anus; Z86.711 Personal history of pulmonary embolism; E11.9 Type 2 diabetes mellitus without complications; Z79.899 Other long term (current) drug therapy
CPT/HCPCS: 82947; 96374; 96523; J1642; J2250; J2704

== ENCOUNTER 2022-04-18 19:23 | Emergency (ER) | payer OTHER ==
[2022-04-18] MEDS ORDERED: SUBLIMAZE 100 MCG/2 ML IV ONE ×2 (19:34→23:44)
[2022-04-18] MEDS ORDERED: Zofran 4 MG/2 ML VIAL IV ONE (19:34)
[2022-04-18] MEDS ORDERED: Sodium Chloride 0.9% 1000 ML 1,000 ML ONE (20:06)
[2022-04-18] MEDS ORDERED: SUBLIMAZE 100 MCG/2 ML ONE (20:06)
[2022-04-18] MEDS ORDERED: Zofran 4 MG/2 ML VIAL ONE (20:06)
[2022-04-18] MEDS: Sodium Chloride 0.9% 1000 ML 1,000 ML IV SCH (20:08)
[2022-04-18 20:30] LABS: Absolute Neutrophil Ct (ANC) 5.58 x10^3/uL (1.4-6.9); Basophil (Absolute #) 0.04 x10^3/uL (0-0.4); Eosinophil % 3.5 % (0.00-5.0); Eosinophil (Absolute #) 0.28 x10^3/uL (0-0.5); Hematocrit 37.4 % (42-50); Hemoglobin 12.2 g/dL (12.5-18.0); Lymphocyte (Absolute #) 1.46 x10^3/uL (1.0-4.6); Lymphocytes % 18.1 % (24.0-44.0); Mean Cell Volume 88.4 fL (78-100); Mean Corpuscular Hemoglobin 28.8 pg (26-32); Mean Corpuscular Hgb Concent. 32.6 g/dL (32-36); Mean Platelet Volume 8.3 fL (7.5-11.0); Monocyte (Absolute #) 0.69 x10^3/uL (0.0-1.3); Monocytes % 8.5 % (0.0-12.0); Platelet Count 349 x10^3/uL (150-450); Red Blood Count 4.23 x10^6/uL (4.1-5.6); Red Cell Distribution Width 13.6 % (11.5-14.0); White Blood Count 8.1 x10^3/uL (4.0-10.5)
[2022-04-18 20:45] LABS: ANION GAP 12.8 MEQ/L (5-15); BILIRUBIN,TOTAL 0.4 mg/dL (0.2-1.3); Calcium 9.6 mg/dL (8.4-10.2); Creatinine 1 1.51 mg/dL (0.66-1.25); EST GLOMERULAR FILTRATION RATE 51.4 ML/MIN; Potassium 4.4 mmol/L (3.5-5.1); Total Protein 7.3 g/dL (6.3-8.2)
[2022-04-18 20:58] LABS: Appearance CLEAR (CLEAR)
[2022-04-18 20:59] LABS: Bilirubin NEGATIVE (NEGATIVE); Dipstick done @ ? MAIN LAB; Glucose >=1000 mg/dL (NEGATIVE); Ketones TRACE (NEGATIVE); Nitrite POSITIVE (NEGATIVE); Protein,Urine Dip 100 (Negative); RBC MODERATE Ery/ul (0-5); Specific Gravity 1.015 (1.005-1.025); Urobilinogen 0.2 mg/dL (0-1)
[2022-04-18 21:09] LABS: Mucus SLIGHT /HPF (NEGATIVE); RBC 51-100 /HPF (0-2); WBC >100 /HPF (0-5)
[2022-04-18 21:10] LABS: Urine Cultured Indicated? YES
[2022-04-18] MEDS ORDERED: ROCEPHIN 1 Gm-D5w 50 ml Bag** 1 G/50 ML IVPB IV STA (22:33)
--- NOTE | 2022-04-18 22:37 | ERPHSYRPT ---
- History of Present Illness Time Seen by Provider: 04/18/22 19:40 Source: patient, family Exam Limitations: no limitations Patient Subjective Stated Complaint: pt states "I started having back pain that started a hr ago." Triage Nursing Assessment: pt presents to ED via [facility] ambulance, pt alert and oriented x3, pt c/o bilateral flank pain that started 1 hr ago, pt presents with odom catheter and ostomy, pt had surgery on 03/29 for his colorectal CA, pt received morphine and zofran in route Physician History: Patient is a 56-year-old white male who presents to the ER by ambulance with a complaint of severe back pain originating in the lower back. It does not radiate into the flank significantly and not to the anterior abdomen at all. The left is greater than the right. He also states that his "bladder feels funny" this patient had extensive surgery recently due to colorectal cancer he had a removal of the rectum and closure of the anus he also had a colostomy placed to prevent the need for 2 ostomies he had a reconstruction of his bladder and has a indwelling Odom catheter which is scheduled for removal tomorrow. He had the onset of the sharp 6 severe pain an hour and a half prior to arrival. Timing/Duration: today, sudden (Sudden onset of severe pain) Quality: cramping, throbbing Back Pain Location: lumbar spine Severity of Pain-Max: severe Severity of Pain-Current: moderate Modifying Factors: Improves With: nothing Allergies/Adverse Reactions: No Known Drug Allergies Allergy (Verified 04/18/22 19:30) Home Medications: Acetaminophen 500 mg PO DAILY PRN PRN 10/08/19 [History] Bismuth Subsalicylate [Pepto-Bismol] 262 mg PO DAILY 10/08/19 [History] Calcium Carbonate [Tums] 200 mg PO DAILY PRN PRN 10/08/19 [History] Colesevelam HCl 1,250 mg PO BID 10/08/19 [History] Dapagliflozin Propanediol [Farxiga] 10 mg PO DAILY 10/08/19 [History] Doxylamine Succinate [Unisom] 25 mg PO DAILY 10/08/19 [History] Dronedarone Hydrochloride 400* [Multaq 400 MG] 400 mg PO BID 10/08/19 [History] Fexofenadine/Pseudoephedrine [Janine-D 12 Hour Tablet] 1 each PO DAILY 10/08/19 [History] Insulin Aspart [Novolog] 1 pump SQ DAILY 10/08/19 [History] Omeprazole 20 mg PO DAILY 10/08/19 [History] Glucosamine HCl 1,500 mg PO DAILY 10/28/19 [History] Metoprolol Succinate 100 mg [Toprol Xl 100 MG] 100 mg PO DAILY 10/28/19 [History] Nitroglycerin 0.4 mg Tablet [Nitrostat 0.4 MG Tablet] 0.4 mg SL DAILY PRN 10/28/19 [History] Bempedoic Acid/Ezetimibe [Nexlizet 180-10 mg Tablet] 1 each PO DAILY 11/28/20 [History] Hx Tetanus, Diphtheria Vaccination/Date Given: Yes Hx Influenza Vaccination/Date Given: No Hx Pneumococcal Vaccination/Date Given: No Immunizations Up to Date: Yes Travel Risk - International Travel Have you traveled outside of the country in past 3 weeks: No - Coronavirus Screening Are you exhibiting any of the following symptoms?: No Close contact with a COVID-19 positive Pt in past 14-21 Days: No - Vaccine Status Have you recieved a Covid-19 vaccination: No - Review of Systems Constitutional: No Fever, No Chills Eyes: No Symptoms Ears, Nose, & Throat: No Symptoms Respiratory: No Cough, No Dyspnea Cardiac: No Chest Pain, No Edema, No Syncope Abdominal/Gastrointestinal: No Abdominal Pain, No Nausea, No Vomiting, No Diarrhea Genitourinary Symptoms: No Dysuria Musculoskeletal: Back Pain, No Neck Pain Skin: No Rash Neurological: No Dizziness, No Focal Weakness, No Sensory Changes Psychological: No Symptoms Endocrine: No Symptoms All Other Systems: Reviewed and Negative - Past Medical History Pertinent Past Medical History: Yes Neurological History: No Pertinent History ENT History: No Pertinent History Cardiac History: Arrhythmia, High Cholesterol, Hypertension Respiratory History: Sleep Apnea, Other Endocrine Medical History: Diabetes Type II Musculoskeletal History: No Pertinent History GI Medical History: Colorectal Cancer, GERD History: No Pertinent History Psycho-Social History: No Pertinent History Male Reproductive Disorders: Other Other Medical History: allergies/seasonal,colon cancer. a-fib - Past Surgical History Past Surgical History: Yes Neuro Surgical History: No Pertinent History Cardiac: No Pertinent History Respiratory: No Pertinent History Gastrointestinal: Colon Resection Genitourinary: No Pertinent History Musculoskeletal: Orthopedic Surgery Male Surgical History: No Pertinent History Other Surgical History: 1980 right thumb and forearm,colonoscopy,cyst removed on back - Social History Smoking Status: Never smoker Exposure to second hand smoke: No Drug Use: none Patient Lives Alone: No - Nursing Vital Signs Nursing Vital Signs: Initial Vital Signs Temperature 98.7 F 04/18/22 19:32 Pulse Rate 95 H 04/18/22 19:32 Respiratory Rate 18 04/18/22 19:32 Blood Pressure 115/71 04/18/22 19:32 O2 Sat by Pulse Oximetry 98 04/18/22 19:32 Pain Scale Pain Intensity [] 6 Pain Intensity 3 - Physical Exam General Appearance: moderate distress Eye Exam: PERRL/EOMI, eyes nml inspection Ears, Nose, Throat Exam: normal ENT inspection Neck Exam: normal inspection, non-tender, supple, full range of motion, No meningismus, No midline tenderness Respiratory Exam: normal breath sounds, lungs clear, No respiratory distress Cardiovascular Exam: regular rate/rhythm, normal heart sounds Gastrointestinal Exam: normal bowel sounds, other (Colostomy) Male [place] Exam: other (Has a catheter in his prostate) Rectal Exam: deferred Back Exam: normal inspection, No rash Extremity Exam: normal inspection Neurologic Exam: alert, oriented x 3 Skin Exam: normal color, warm, dry SpO2 Interpretation: normal SpO2: 93 O2 Delivery: Room Air - Course Nursing assessment & vital signs reviewed: Yes - Radiology Exams Chest X-ray Interpretation: Interpreted by me, Negative - CT Exams Abdomen/Pelvis CT Interpretation: Tele-radiologist Report, Other (Summary would be dilated distended stomach fecal stasis left colostomy.) Ordered Tests: Active Orders 24 hr Category Date Time Status IV Insertion STAT Care 04/18/22 19:34 Active ABDOMEN AND PELVIS W/0 CONTRAS [CT] Stat Exams 04/18/22 19:35 Taken CHEST 1 VIEW (PORTABLE) Stat Exams 04/18/22 19:35 Taken AMYLASE Stat Lab 04/18/22 20:29 Completed CBC W DIFF Stat Lab 04/18/22 20:29 Completed CMP Stat Lab 04/18/22 20:29 Completed CULTURE,URINE Stat Lab 04/18/22 19:49 Received LIPASE Stat Lab 04/18/22 20:29 Completed Lactic Acid Stat Lab 04/18/22 20:29 Completed Lactic Acid Stat Lab 04/18/22 22:34 Received UA W/RFX CULTURE Stat Lab 04/18/22 19:49 Completed Medication Summary Generic Name Dose Route Start Last Admin Trade Name Sonja PRN Reason Stop Dose Admin Sodium Chloride 1,000 mls @ 100 mls/hr 04/18/22 19:45 04/18/22 20:08 Sodium Chloride 0.9% 1000 Ml IV 05/18/22 19:44 100 mls/hr .Q10H LYNDA Administration Discontinued Medications Generic Name Dose Route Start Last Admin Trade Name Sonja PRN Reason Stop Dose Admin Fentanyl Citrate 100 mcg 04/18/22 19:34 04/18/22 20:09 Fentanyl Citrate 100 Mcg/2 Ml* Vial IV 04/18/22 19:35 100 mcg STAT ONE Administration Fentanyl Citrate Confirm 04/18/22 20:06 Fentanyl Citrate 100 Mcg/2 Ml* Vial Administered 04/18/22 20:07 Dose 100 mcg .ROUTE .STK-MED ONE Fentanyl Citrate 100 mcg 04/18/22 23:44 Fentanyl Citrate 100 Mcg/2 Ml* Vial IV 04/18/22 23:45 STAT ONE Ceftriaxone Sodium/Dextrose 1 g in 50 mls @ 100 mls/hr 04/18/22 22:33 04/18/22 23:36 Rocephin 1 Gm-D5w 50 Ml Bag IV 04/18/22 23:02 100 mls/hr STAT STA 100 mls/hr Administration Ceftriaxone Sodium/Dextrose Confirm 04/18/22 23:31 Rocephin 1 Gm-D5w 50 Ml Bag Administered 04/18/22 23:32 Dose 1 g in 50 mls @ ud IV .STK-MED ONE Ondansetron HCl 4 mg 04/18/22 19:34 04/18/22 20:09 Ondansetron Hcl 4 Mg/2 Ml Vial IV 04/18/22 19:35 4 mg STAT ONE Administration Ondansetron HCl Confirm 04/18/22 20:06 Ondansetron Hcl 4 Mg/2 Ml Vial Administered 04/18/22 20:07 Dose 4 mg .ROUTE .STK-MED ONE Lab/Rad Data: Laboratory Result Diagrams 04/18/22 20:29 04/18/22 20:29 Laboratory Results 04/18/22 04/18/22 04/18/22 Range/Units 20:29 20:29 20:29 WBC 8.1 (4.0-10.5) x10^3/uL RBC 4.23 (4.1-5.6) x10^6/uL Hgb 12.2 L (12.5-18.0) g/dL Hct 37.4 L (42-50) % MCV 88.4 (78-100) fL MCH 28.8 (26-32) pg MCHC 32.6 (32-36) g/dL RDW 13.6 (11.5-14.0) % Plt Count 349 (150-450) x10^3/uL MPV 8.3 (7.5-11.0) fL Gran % 69.0 H (36.0-66.0) % Immature Gran % (Auto) 0.4 (0.00-0.4) % Nucleat RBC Rel Count 0.0 (0.00-0.1) % Eos # (Auto) 0.28 (0-0.5) x10^3/uL Immature Gran # (Auto) 0.03 (0.00-0.03) x10^3u/L Absolute Lymphs (auto) 1.46 (1.0-4.6) x10^3/uL Absolute Monos (auto) 0.69 (0.0-1.3) x10^3/uL Absolute Nucleated RBC 0.00 (0.00-0.01) x10^3u/L Lymphocytes % 18.1 L (24.0-44.0) % Monocytes % 8.5 (0.0-12.0) % Eosinophils % 3.5 (0.00-5.0) % Basophils % 0.5 (0.0-0.4) % Absolute Granulocytes 5.58 (1.4-6.9) x10^3/uL Basophils # 0.04 (0-0.4) x10^3/uL Sodium 140 (137-145) mmol/L Potassium 4.4 (3.5-5.1) mmol/L Chloride 108 H (98-107) mmol/L Carbon Dioxide 23 (22-30) mmol/L Anion Gap 12.8 (5-15) MEQ/L BUN 23 H (9-20) mg/dL Creatinine 1.51 H (0.66-1.25) mg/dL Estimated GFR 51.4 ML/MIN Glucose 113 H (74-106) mg/dL Lactic Acid 2.8 H (0.4-2.0) Calcium 9.6 (8.4-10.2) mg/dL Total Bilirubin 0.40 (0.2-1.3) mg/dL AST 39 (17-59) U/L ALT 28 (0-50) U/L Alkaline Phosphatase 52 (38-126) U/L Serum Total Protein 7.3 (6.3-8.2) g/dL Albumin 4.0 (3.5-5.0) g/dL Amylase 52 (30-110) U/L Lipase 100 (23-300) U/L Urinalys Dipstick Clnc Urine Color (YELLOW) Urine Appearance (CLEAR) Urine pH (5-6) Ur Specific Palms (1.005-1.025) POC Urine Protein Conf (Negative) Urine Ketones (NEGATIVE) Urine Nitrite (NEGATIVE) Urine Bilirubin (NEGATIVE) Urine Urobilinogen (0-1) mg/dL Urine Leukocytes (NEGATIVE) Urine WBC (Auto) (0-5) /HPF Urine RBC (Auto) (0-2) /HPF U Epithel Cells (Auto) (FEW) /HPF Urine Bacteria (Auto) (NEGATIVE) /HPF Urine RBC (0-5) Bird/ul Urine Mucus (Auto) (NEGATIVE) /HPF Ur Culture Indicated? Urine Glucose (NEGATIVE) mg/dL 04/18/22 Range/Units 19:49 WBC (4.0-10.5) x10^3/uL RBC (4.1-5.6) x10^6/uL Hgb (12.5-18.0) g/dL Hct (42-50) % MCV (78-100) fL MCH (26-32) pg MCHC (32-36) g/dL RDW (11.5-14.0) % Plt Count (150-450) x10^3/uL MPV (7.5-11.0) fL Gran % (36.0-66.0) % Immature Gran % (Auto) (0.00-0.4) % Nucleat RBC Rel Count (0.00-0.1) % Eos # (Auto) (0-0.5) x10^3/uL Immature Gran # (Auto) (0.00-0.03) x10^3u/L Absolute Lymphs (auto) (1.0-4.6) x10^3/uL Absolute Monos (auto) (0.0-1.3) x10^3/uL Absolute Nucleated RBC (0.00-0.01) x10^3u/L Lymphocytes % (24.0-44.0) % Monocytes % (0.0-12.0) % Eosinophils % (0.00-5.0) % Basophils % (0.0-0.4) % Absolute Granulocytes (1.4-6.9) x10^3/uL Basophils # (0-0.4) x10^3/uL Sodium (137-145) mmol/L Potassium (3.5-5.1) mmol/L Chloride (98-107) mmol/L Carbon Dioxide (22-30) mmol/L Anion Gap (5-15) MEQ/L BUN (9-20) mg/dL Creatinine (0.66-1.25) mg/dL Estimated GFR ML/MIN Glucose (74-106) mg/dL Lactic Acid (0.4-2.0) Calcium (8.4-10.2) mg/dL Total Bilirubin (0.2-1.3) mg/dL AST (17-59) U/L ALT (0-50) U/L Alkaline Phosphatase (38-126) U/L Serum Total Protein (6.3-8.2) g/dL Albumin (3.5-5.0) g/dL Amylase (30-110) U/L Lipase (23-300) U/L Urinalys Dipstick Clnc MAIN LAB Urine Color YELLOW (YELLOW) Urine Appearance CLEAR (CLEAR) Urine pH 6.0 (5-6) Ur Specific Palms 1.015 (1.005-1.025) POC Urine Protein Conf 100 A (Negative) Urine Ketones TRACE A (NEGATIVE) Urine Nitrite POSITIVE A (NEGATIVE) Urine Bilirubin NEGATIVE (NEGATIVE) Urine Urobilinogen 0.2 (0-1) mg/dL Urine Leukocytes SMALL A (NEGATIVE) Urine WBC (Auto) >100 A (0-5) /HPF Urine RBC (Auto) 51-100 A (0-2) /HPF U Epithel Cells (Auto) NONE (FEW) /HPF Urine Bacteria (Auto) NONE (NEGATIVE) /HPF Urine RBC MODERATE A (0-5) Bird/ul Urine Mucus (Auto) SLIGHT A (NEGATIVE) /HPF Ur Culture Indicated? YES Urine Glucose >=1000 A (NEGATIVE) mg/dL - Progress Progress: pain not gone completely - Departure Departure Disposition: Transfer (Patient transferred to [place] Dr. Morales) Clinical Impression: Urinary tract infection Condition: Stable Critical Care Time: No Referrals: ADRIEL HERNANDEZ [Primary Care Provider] - Follow up/PCP as directed Instructions: Urinary Tract Infection, Adult (DC)
[2022-04-18] MEDS ORDERED: ROCEPHIN 1 Gm-D5w 50 ml Bag** 1 G/50 ML IVPB IV ONE (23:31)
[2022-04-19] MEDS ORDERED: SUBLIMAZE 100 MCG/2 ML ONE (00:26)
[2022-04-19 06:06] VITALS: O2SAT 100
[2022-04-19] MEDS ORDERED: ROCEPHIN 1 Gm-D5w 50 ml Bag** 1 G/50 ML IVPB IV STA (06:16)
[2022-04-19] MEDS ORDERED: Sodium Chloride 0.9% 1000 ML 1,000 ML ONE (06:21)
[2022-04-19] MEDS ORDERED: ROCEPHIN 1 Gm-D5w 50 ml Bag** 1 G/50 ML IVPB IV ONE (06:21)
[2022-04-19] MEDS: Sodium Chloride 0.9% 1000 ML 1,000 ML IV SCH (06:27)
[2022-04-19 07:42] VITALS: BP 148/91; PULSE 70
--- NOTE | 2022-04-19 08:41 | XRAY ---
Indication: Bilateral flank pain and dizziness. History of colon cancer. Multiple contiguous axial images obtained through the abdomen and pelvis without contrast. Comparison: April 18, 2021 Lung bases clear. Heart not enlarged. Stomach is distended with food/fluid. Noncontrasted stomach and bowel loops appear nonobstructed with normal appendix. New mild diffuse colonic fecal debris. Again left midabdomen diverting colostomy without complications. Rectal stump again demonstrates circumferential wall thickening and stranding presumed post-therapeutic. New left double-J ureteral stent catheter without hydronephrosis/hydroureter. Near empty urinary bladder demonstrates new Guan balloon catheter in situ. Again 21.5 cm fatty hepatomegaly, tiny punctate gallstone, and tiny left renal exophytic cyst. No free fluid/air. Remaining liver, gallbladder, pancreas, spleen, adrenal glands, kidneys, ureters, and bladder are unremarkable for noncontrast exam. Again minimal aortic calcifications without AAA. Osseous structures intact again with mild degenerative changes throughout the spine and L1 Schmorl node. Impression: 1. New mild diffuse fecal stasis, new left ureteral stent catheter, and new Guan balloon catheter without complications. 2. Again chronic findings including left abdomen colostomy without complications, rectal stump circumferential wall thickening/stranding, fatty hepatomegaly, tiny gallstone, left renal cyst, and chronic bony findings. 3. Remaining CT abdomen/pelvis without contrast exam is negative.
--- NOTE | 2022-04-19 08:55 | XRAY ---
Indication: Back pain. Comparison: February 02, 2020 Portable chest remains inflated and clear. Heart not enlarged again with right Port-A-Cath. Bony thoracic intact again with mild degenerative changes. No new/acute findings.
== END 2022-04-19 07:40 | disposition short-term general hospital (02) ==
LOC: ED 19:23
DX: N39.0 Urinary tract infection, site not specified (principal); M54.50 Low back pain, unspecified; E78.5 Hyperlipidemia, unspecified; I10 Essential (primary) hypertension; E11.9 Type 2 diabetes mellitus without complications; Z79.84 Long term (current) use of oral hypoglycemic drugs; Z79.4 Long term (current) use of insulin; Z79.899 Other long term (current) drug therapy; Z28.310 Unvaccinated for COVID-19
CPT/HCPCS: 36000; 36415; 71045; 74176; 80053; 81015; 82150; 83605; 83690; 85025; 87077; 87086; 87186; 96360; 96361; 96365; 96366; 96374; 96375; 96376; 99285; J0696; J2405; J3010

== ENCOUNTER 2023-01-21 08:50 | Day surgery (SDC) | payer OTHER ==
--- NOTE | 2023-01-21 07:55 | HP ---
DATE OF SURGERY: 01/21/2023 HISTORY OF PRESENT ILLNESS: The patient is a 57-year-old with some metastatic colorectal cancer in need of follow up colonoscopy. He had some loose stools out his ostomy. No recent change. No bloody stools. Tumor at the base of his spine referred to Dr. Collins. The patient needs follow up colonoscopy at this time. PAST MEDICAL HISTORY: Colon cancer, hypertension, atrial fibrillation, hyperlipidemia, sleep apnea, diabetes mellitus type II, gastroesophageal reflux disease and obesity. PAST SURGICAL HISTORY: Colon resection and ostomy in the past. He had his rectum removed in the past. He had some kidney procedure in the past. Hand and thumb surgery in the past. MEDICATIONS: Gabapentin, Farxiga, finasteride, colesevelam, cephalexin, Multaq, metoprolol, Xarelto, ondansetron, NovoLog. ALLERGIES: NKDA. FAMILY HISTORY: Diabetes, heart disease. SOCIAL HISTORY: No smoking or alcohol abuse. REVIEW OF SYSTEMS: Fourteen systems reviewed. No chest pain or palpitations. Other systems negative or noncontributory as above and per preadmission questionnaire. PHYSICAL EXAMINATION: Height 6'1". Weight 340. BMI 44.86. GENERAL: No acute distress. HEENT: Sclerae nonicteric. EOMI. Oral mucous membranes moist. NECK: No JVD. CHEST: Equal excursion, nonlabored breathing. CVS: Regular rate and rhythm. ABDOMEN: Soft, nontender. He has an ostomy. EXTREMITIES: No cyanosis or edema. NEURO: Alert, moving extremities symmetrically. RECTAL: Deferred timed to endoscopy exam. PSYCH: Appropriate mood and affect. SKIN: Dry. IMPRESSION: Colon cancer. He has had some colon cancer and has had several procedures in the past. He is in need of follow up colonoscopy. Risks and benefits explained in detail including bleeding or infection, risk of bowel injury or perforation, risk of missed or nondiagnosis or incomplete exam possibly requiring barium through his stoma, other studies or procedures, general risk of anesthesia or sedation, risk of bowel prep but not limited to. Will proceed with follow up colonoscopy under MAC anesthesia as an outpatient. Continue medications for hypertension, diabetes and heart disease.
[2023-01-21] MEDS ORDERED: Lactated Ringers 1,000 ML IV ONE (09:07)
[2023-01-21 09:41] VITALS: RESP 18
[2023-01-21] MEDS: Lactated Ringers 1,000 ML IV SCH (09:49)
[2023-01-21] MEDS ORDERED: Versed 2 MG/2 ML Injection ONE (10:26)
[2023-01-21] MEDS ORDERED: DIPRIVAN 200 MG/20 ML IV ONE ×2 (10:26→10:45)
[2023-01-21 11:17] VITALS: PULSE 64; TEMP 98; O2SAT 98
[2023-01-21 11:31] VITALS: BP 161/81
[2023-01-21] MEDS: Sodium Chloride 0.9% 10 ML FLUSH Syringe PORT FLUSH PRN (11:39)
--- NOTE | 2023-01-22 11:37 | OP ---
SURGERY DATE/TIME: 01/21/2023 1037 PREOPERATIVE DIAGNOSIS: History of metastatic colon cancer, needs follow up colonoscopy. POSTOPERATIVE DIAGNOSES: 1) Limited bowel prep otherwise no signs of any obvious cancer recurrence. 2) No signs of any large polyps. PROCEDURES: 1) Colonoscopy to cecum with cold biopsy of tattooed area of prior adenomatous open polypectomy site. 2) Withdrawal time approximately eight minutes. 3) ASA Class II. SURGEON: Dr. Brandon Preston. HANDLE LATHE OPERATOR: Paul Amanda, Medical Student III. ANESTHESIA: MAC. ESTIMATED BLOOD LOSS: Minimal. INDICATIONS: As noted above. Risks and benefits explained in detail but not limited to and consent obtained. DESCRIPTION OF PROCEDURE AND FINDINGS: The patient is taken to the endoscopy room. MAC anesthesia induced. After official time out and no disagreement with planned procedure, video colonoscope inserted and passed up through the colostomy and slightly tortuous colon past where the other transverse colon open polypectomy site in the past around to the cecum. Appendiceal orifice and valve well visualized. Prep overall was limited. A fair amount of liquidy semisolid stool limiting the exam for very small lesions this is suctioned irrigated as clear as possible but did limit the exam for very small lesions. On careful withdrawal of the scope, irrigating as much as possible, there were no signs of any obvious large polyps, masses or obstructing lesions. The site where the tattooed area of the prior transverse polypectomy site cold biopsy is taken here for completeness although did not appear to have obvious evidence of cancer recurrence or recurrent polyp at this point. Good hemostasis noted. The scope is carefully withdrawn. Again, no signs of any large polyps, masses or obstructing lesion. Again, the prep did limit the exam. Findings discussed with the family in the waiting area. He will continue to follow up with his [facility] surgeon.
== END 2023-01-21 12:00 | disposition home or self-care (01) ==
LOC: SDC 08:50
PROVIDERS: ATTEND Surgery
DX: Z85.038 Personal history of other malignant neoplasm of large intestine (principal); E11.9 Type 2 diabetes mellitus without complications
CPT/HCPCS: 82947; J1642; J2250; J2704